=== PATIENT | male | born 1960 | race Caucasian/White ===

== ENCOUNTER 2023-04-06 18:51 | Emergency (ER) | payer BC, OTHER ==
[~2023-04-06] VITALS: Ht 185.4 cm; Wt 80.0 kg
[~2023-04-06 18:51] MED LIST: DOCU-28 PO; HYDR-4383 PO; MAGN296S89 PO
[2023-04-06 18:54] VITALS: BP 128/68
[2023-04-06] MEDS ORDERED: ondansetron/PF 4mg/2ml inj IV ONE (19:00)
[2023-04-06] MEDS ORDERED: normal saline 1000ML IV soln IVB ONE (19:00)
[2023-04-06] MEDS ORDERED: morphine 4 MG/ML inj SYRINge IV PRN (19:00)
[2023-04-06] MEDS ORDERED: ketorolac trometh. 30mg/ml inj. IV ONE (19:35)
[2023-04-06 19:41] LABS: ALANINE AMINOTRANSFERASE 25 U/L (12-78); ALBUMIN 4.3 G/DL (3.4-5.0); ALBUMIN/GLOBULIN RATIO 1.5 (1.1-1.5); ALKALINE PHOSPHATASE 87 IU/L (46-116); ANION GAP 16 (8-16); ASPARTATE AMINO TRANSFERASE 26 U/L (10-37); BILIRUBIN,TOTAL 0.8 MG/DL (0.1-1.0); BLOOD UREA NITROGEN 29 MG/DL (7-18); BUN/CREATININE RATIO 19.1 (10.0-20.0); CALCIUM 9.2 MG/DL (8.5-10.1); CHLORIDE 107 MMOL/L (99-107); CREATININE 1.52 MG/DL (0.60-1.10); GLUCOSE 127 MG/DL (70-104); LIPASE 158 U/L (73-393); POTASSIUM 4.2 MMOL/L (3.5-5.1); SODIUM 145 MMOL/L (135-145); TOTAL CARBON DIOXIDE 22.2 MMOL/L (24-32); TOTAL PROTEIN 7.2 G/DL (6.4-8.2); eGFR 46 ML/MIN
--- NOTE | 2023-04-06 19:43 | NUR ---
PT TO CT VIA W/C
[2023-04-06 19:56] LABS: BASOPHILS # (AUTO) 0.1 X10'3 (0-0.2); BASOPHILS % (AUTO) 0.6 % (0-1); EOSINOPHILS # (AUTO) 0.1 X10'3 (0-0.9); HEMATOCRIT 44.6 % (42.0-52.0); HEMOGLOBIN 14.8 g/dl (14.0-17.9); LYMPHOCYTES # (AUTO) 1.3 X10'3 (1.1-4.8); MEAN CORPUSCULAR HEMOGLOBIN 29.1 PG (27.0-31.0); MONOCYTES # (AUTO) 0.7 X10'3 (0-0.9); MONOCYTES % (AUTO) 5.6 % (2-12)
[2023-04-06 20:13] LABS: EOSINOPHILS % (AUTO) 0.5 % (0-6); LYMPHOCYTES % (AUTO) 10.3 % (21-51); MEAN CORPUSCULAR HGB CONC 33.2 g/dL (33.0-36.5); MEAN CORPUSCULAR VOLUME 87.6 FL (78-98); MEAN PLATELET VOLUME 8.6 FL (7.4-10.4); NEUTROPHILS # (AUTO) 10.7 X10'3 (1.8-7.7); PLATELET COUNT 243 X10'3 (140-440); RED BLOOD COUNT 5.09 X10'6 (4.70-6.10); RED CELL DISTRIBUTION WIDTH 13.1 % (11.5-14.5); WHITE BLOOD COUNT 12.9 X10'3 (4.5-11.0)
[2023-04-06] MEDS ORDERED: tamsulosin 0.4mg capsule PO STA (20:22)
[2023-04-06] MEDS: oxyCODONE/APAP 10/325mg tablet PO ONE ×2 (20:36→21:13)
[2023-04-06] MEDS ORDERED: ONDA4TAB12 PO (20:59)
[2023-04-06] MEDS ORDERED: OXYC-150 PO (20:59)
[2023-04-06] MEDS ORDERED: FLO0.4C PO (20:59)
[2023-04-06] MEDS ORDERED: oxyCODONE/APAP 10/325mg tablet PO ONE (21:15)
[2023-04-06 21:23] LABS: CLARITY,URINE SLIGHTLY CLOUDY (Clear); COLOR,URINE YELLOW (Yellow); GLUCOSE, URINE NEGATIVE (Neg); KETONES,URINE >=80 mg/dl (Neg); LEUKOCYTE ESTERASE ,URINE NEGATIVE (Neg); NITRITES, URINE NEGATIVE (Neg); OCCULT BLOOD,URINE LARGE (Neg); PROTEIN,URINE NEGATIVE (Neg); UROBILINOGEN,URINE 0.2 E.U/dL (0.2-1.0)
[2023-04-06 22:01] LABS: UA COLLECTION TYPE VOIDED
[2023-04-06 22:10] LABS: RBC,URINE 50-100 /HPF (0-2); WBC,URINE NONE SEEN /HPF (0-4)
[2023-04-06 22:11] LABS: BACTERIA,URINE FEW /HPF (Neg); MUCUS STRANDS MODERATE /LPF (Neg); RENAL CELLS, URINE FEW /HPF; SQUAMOUS EPITHELIAL CELL,UR NONE SEEN /LPF (FEW)
== END 2023-04-06 21:15 | disposition home or self-care (01) ==
LOC: ER 18:52
DX: N20.0 Calculus of kidney (principal); G89.29 Other chronic pain; M54.9 Dorsalgia, unspecified; I10 Essential (primary) hypertension; Z90.49 Acquired absence of other specified parts of digestive tract; Z91.040 Latex allergy status; Z79.899 Other long term (current) drug therapy
CPT/HCPCS: 36415; 74176; 80053; 81001; 83690; 85025; 96361; 96374; 96375; 99285; J1885; J2270; J2405; J7030